=== PATIENT | male | born 1960 | race Caucasian/White ===

== ENCOUNTER → 2021-08-22 | Outpatient (CLI) | payer BC ==
--- NOTE | 2021-08-22 14:44 | CARD ---
MR#: [id number] Date of Study: 08/22/2021 Ordering Physician: ALAN MCCLAIN, Referring Physician: ALAN MCCLAIN, Tech: Precious Amos, [facility] APPROVED REPORT EXAM: Two-dimensional and M-mode echocardiogram with Doppler and color Doppler. Other Information Quality : AverageHR: 75bpm INDICATION Dyspnea RISK FACTORS Hypertension Hyperlipidemia Diabetes 2D DIMENSIONS Left Atrium(2D)3.1 (1.6-4.0cm)IVSd1.2 (0.7-1.1cm) Aortic Root(2D)3.3 (2.0-3.7cm)LVDd4.4 (3.9-5.9cm) LVOT Diameter2.0 (1.8-2.4cm)PWd1.2 (0.7-1.1cm) LVDs2.1 (2.5-4.0cm)FS (%) 50.7 % SV70.6 mlLVEF(%)72.2 (>50%) Aortic Valve AoV Peak Aleksandr.161.5cm/sAoV VTI31.3cm AO Peak GR.10.4mmHgLVOT Peak Aleksandr.145.5cm/s LVOT VTI 30.08cmAO Mean GR.6mmHg MEGHANA (VMAX)2.16bn5WRB (VTI)3.07cm2 Mitral Valve MV E Lqaderzn42.8cm/sMV E Peak Gr.3mmHg MV DECEL [id number] A Fozzhcqm055.2cm/s E/A Ratio0.8 Pulmonary Valve PV Peak Yxreupev35.7cm/sPV Peak Grad.3mmHg Tricuspid Valve TR P. Lgegqosd020rs/sRAP LZJWQDCW2viDt TR Peak Gr.89dqIrWWRT28vgJz LEFT VENTRICLE The left ventricle is normal size. There is mild concentric left ventricular hypertrophy. The left ve ntricular systolic function is normal and the ejection fraction is within normal range. The Ejection Fraction is 65%. There is normal LV segmental wall motion. Transmitral Doppler flow pattern is Grade I-abnormal relaxation pattern. RIGHT VENTRICLE The right ventricle is normal size. There is normal right ventricular wall thickness. The right ventr icular systolic function is normal. ATRIA The left atrium size is normal. The right atrium size is normal. The interatrial septum is intact wit h no evidence for an atrial septal defect or patent foramen ovale as noted on 2-D or Doppler imaging. AORTIC VALVE The aortic valve is normal in structure and function. Doppler and Color Flow revealed no significant aortic regurgitation. There is no significant aortic valvular stenosis. Calculated aortic valve area is 3.7 cm2 with maximum pressure gradient of 11 mmHg and mean pressure gradient of 6 mmHg. MITRAL VALVE The mitral valve is normal in structure and function. There is no evidence of mitral valve prolapse. There is no mitral valve stenosis. Doppler and Color Flow revealed no mitral valve regurgitation note d. TRICUSPID VALVE The tricuspid valve is normal in structure and function. Doppler and Color Flow revealed trace tricus pid regurgitation with an estimated PAP of 23 mmHg. There is no tricuspid valve stenosis. PULMONIC VALVE Doppler and Color Flow revealed no pulmonic valvular regurgitation. There is no pulmonic valvular rogelio nosis. GREAT VESSELS The aortic root is normal in size. The ascending aorta is normal in size. The IVC was not visualized. PERICARDIAL EFFUSION There is no evidence of significant pericardial effusion. Critical Notification Critical Value: No <Conclusion> The left ventricular systolic function is normal and the ejection fraction is within normal range. Th e Ejection Fraction is 65%. There is normal LV segmental wall motion. Signed by : Alan Mcclain, Electronically Approved : 08/22/2021 14:43:49
== END ==
LOC: ECHO 13:21
PROVIDERS: ATTEND Internal Medicine Cardiovascular Disease
DX: I51.7 Cardiomegaly (principal); R06.00 Dyspnea, unspecified
CPT/HCPCS: 93306

== ENCOUNTER → 2021-09-06 | Outpatient (CLI) | payer BC ==
[~2021-09-06] MED LIST: REGADENOSON 0.4 MG/5 ML DISP.SYRIN. IV ONE
--- NOTE | 2021-09-06 17:00 | RAD ---
MR#: [id number] Date of Study: 09/06/2021 Ordering Physician: ALAN HUDDLESTON, Referring Physician: LEIGH NEGRON Tech: RT Joann (R) (N) APPROVED REPORT Test Type: Pharmacological Stress Nurse/Tech: Caroline Arellano / Flakita Billy Test Indications: Dyspnea Cardiac History: No known cardiac Medications: See EHR Medical History: See EHR Resting Heart Rate: 68 bpm Resting Blood Pressure: 163/83mmHg Pretest Chest Pain: None Pharm. Details Pharmacologic stress testing was performed using 0.4mg per 5ml of regadenoson given intravenously ove r 7-10 seconds. Stress Symptoms Dyspnea POST EXERCISE Reason for Termination: Infusion complete Max HR: 100 bpm Max Blood Pressure: 171/80mmHg Blood Pressure response to exercise: Normal blood pressure response during stress. Heart Rate response to exercise: Normal Chest Pain: No. Arrhythmia: No. ST Change: No. INTERPRETATION Stress EKG Conclusion: The resting EKG shows a sinus rhythm and nonspecific ST segment changes in the anterior region. The stress EKG shows no significant changes from baseline. No EKG evidence of stress-induced ischemia. Imaging Protocol IMAGE PROTOCOL: Rest Tc-99m/stress Tc-99m 1 day Rest: Stress: Viability: Radiopharm.Tc99m SmijzglgqSr57k Sestamibi Hazz11qXo 32mCi Duration 15min. 15min. Img Date 09/06/2021 09/06/2021 Inj-Img Zlnt77vcs. 50min. Rest Admin Site:IV - Left AntecubitalAdministrator: RT Joann (R)(N) Stress Admin Site: IV - Left AntecubitalAdministrator: RT Joann (R)(N) STRESS DATA End Diast. Vol.72.0mlAv. Heart Rate86.0bpm End Syst. Vol.8.0mlCO Index BSA0.0L/min Myocardial Uafh338.0gEject. Qiobyifi88.0% Stress Rates Pk. Fill Rate4.94EDV/secLVtime Pk. Fill 189.64msec Pk. Empty Rate6.58ESV/secLVtime Pk. Btbgd405.23msec 1/3 Pk. Fill1.49EDV/sec Stress Scores Regional WT0.00Summed WT5.00 Regional WM0.00Summed WM0.00 LV Perfusion The stress scans showed no significant defects. The rest scans showed no significant defects. Nuclear imaging shows no reversible ischemia or infarct. Wall Motion Normal left ventricular systolic function with an ejection fraction of greater than 70%. LV Perf. Quant 17 Seg. SSS0.00 17 Seg. SRS0.00 17 Seg. SDS0.00 Stress Defect Extent (% LAD)0.00Rest Defect Extent (% LAD)0.00Rev. Defect Extent (% LAD)0.00 Stress Defect Extent (% LCX) 0.00Rest Defect Extent (% LCX)0.00Rev. Defect Extent (% LCX)0.00 Stress Defect Extent (% RCA)0.00Rest Defect Extent (% RCA)0.00Rev. Defect Extent (% RCA)0.00 Stress Defect Extent (% DREA)0.00Rest Defect Extent (% DREA)0.00Rev. Defect Extent (% DREA)0.00 Conclusion 1. Mildly abnormal resting EKG but no EKG evidence of stress-induced ischemia. 2. Nuclear imaging shows no reversible ischemia or infarct. 3. Normal left ventricular systolic function with an ejection fraction of greater than 70%. 4. Low risk Lexiscan nuclear stress test. Signed by : Hiro Corona MD Electronically Approved : 09/06/2021 16:59:58
== END ==
LOC: NM 07:47
PROVIDERS: ATTEND Internal Medicine Cardiovascular Disease
DX: R94.31 Abnormal electrocardiogram [ECG] [EKG] (principal); R06.00 Dyspnea, unspecified
CPT/HCPCS: 78452; 93017; A9500